=== PATIENT | male | born 1980 | race Caucasian/White ===

== ENCOUNTER → 2017-03-14 | Outpatient (CLI) | payer BC ==
--- NOTE | 2017-03-14 16:45 | RAD ---
Ultrasound of the abdomen 03/14/2017 Clinical history: Right upper quadrant abdominal pain. Technique: A real-time ultrasound examination of the abdomen was performed. Multiple images were obtained. Findings: The gallbladder is well-distended. Echogenic gallstones are seen within the dependent portions of the gallbladder. The gallbladder wall thickness is within normal limits. No pericholecystic fluid is seen. The liver is normal in size measuring 15.6 cm in length. Increased echogenicity of the liver parenchyma is seen consistent with mild fatty infiltration. The common bile duct is dilated measuring 1 cm in diameter. No intrahepatic biliary ductal dilatation is seen. The spleen, visualized portions of the pancreas and right kidney are within normal limits. A 3.7 cm simple cyst is seen involving the lower pole of the left kidney. The abdominal aorta tapers normally. The inferior vena cava is within normal limits. No free fluid is seen. Impression: 1. Cholelithiasis. 2. The common bile duct is dilated measuring 1 cm in diameter. No intrahepatic biliary ductal dilatation is seen. 3. Mild fatty infiltration of the liver.
== END | disposition home or self-care (01) ==
LOC: US 16:03
PROVIDERS: ATTEND Physician Assistant
DX: K80.20 Calculus of gallbladder without cholecystitis without obstruction (principal); N28.1 Cyst of kidney, acquired; K76.0 Fatty (change of) liver, not elsewhere classified
CPT/HCPCS: 76700